=== PATIENT | male | born 1930 | race Caucasian/White ===

== ENCOUNTER → 2016-12-25 | Outpatient (CLI) | payer OTHER ==
[~2016-12-25] MED LIST: REGADENOSON 0.4 MG/5 ML DISP.SYRIN. IV ONE
--- NOTE | 2016-12-25 16:25 | PCVCIMAG ---
APPROVED REPORT Exam: Nuclear Stress Test Indication: CAD Patient Location: Out-Patient Stress Nurse: Janet Bhatt RN, Shyann Pardo RN DE Tech:Janes Chi NMTCB Ht: 5 ft 8 in Wt: 172 lbs BSA: 1.92 m2 HR: 70 bpm BP: 121/58 mmHg BMI: 26.1 Rhythm: Afib Medical History Medical History: Age, Hyperlipidemia, HTN, Afib, Cad, DM, Former Smoker Allergies: None Previous Cardiac Procedures: PCI Stress Test Details Stress Test: Pharmacologic stress testing performed using 0.4 mg of regadenoson per 5 mL given IV over 10 seconds. HR Resting HR: 70 bpmMax Heart Rate (APMHR): 135 bpm Max HR Achieved: 95 bpmTarget HR (85% APMHR): 114 bpm % of APMHR: 70 Recovery HR: 90 bpm BP Resting BP: 121/58 mmHg Max BP: 139/64 mmHg Recovery BP: 126/64 mmHg ECG Resting ECG: Atrial Fibrillation, Intraventricular conduction delay Stress ECG: Atrial Fibrillation, Intraventricular conduction delay ST Change: Non-ischemic Clinical Reason for Termination: Completed protocol Stress Symptoms: Dyspnea NM EXAM: Myocardial Perfusion REST/STRESS Imaging Protocol: Rest Tc-99m/Stress Tc-99m 1 day Resting Data Rest SPECT myocardial perfusion imaging was performed in supine position 45 minutes following the intravenous injection of 11.1 mCi of Tc-99m Sestamibi. Time of rest injection: 1300 Date: 12/25/2016 Pharmacologic Stress Pharmacologic stress test was performed by injecting Regadenoson 0.4 mg IV push followed by the intravenous injection of 32.4 mCi of Tc-99m Sestamibi. Time of stress injection: 1430 Date: 12/25/2016 The images were gated to evaluate regional wall motion and calculate left ventricular ejection fraction. Study Quality Study: Good Study Data Post stress, the left ventricular ejection was 48%.. SSS: 7 SRS: 1 SDS: 7 TID = 1.05. Perfusion There is a medium area of mildly reduced uptake in the apical segment of the distal inferior wall which is seen on the stress images and improves on the resting images. This area is hypokinetic and is most consistent with myocardial scar with rosetta-infarct ischemia. 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 The LV systolic function is at the lower limits of normal, with hypokinesis of the apical segment.
== END | disposition home or self-care (01) ==
LOC: PCVCIMAG 12:36
PROVIDERS: ATTEND Internal Medicine Cardiovascular Disease
DX: I48.91 Unspecified atrial fibrillation (principal); I25.10 Atherosclerotic heart disease of native coronary artery without angina pectoris; I25.89 Other forms of chronic ischemic heart disease; E78.5 Hyperlipidemia, unspecified; I10 Essential (primary) hypertension; E11.9 Type 2 diabetes mellitus without complications; K52.9 Noninfective gastroenteritis and colitis, unspecified; Z87.891 Personal history of nicotine dependence
CPT/HCPCS: 78452; 93017; A9500; J2785

== ENCOUNTER → 2017-06-27 | Outpatient (CLI) | payer OTHER | END | disposition home or self-care (01) | LOC: PCVCCLINIC 14:06 | DX: I25.10 Atherosclerotic heart disease of native coronary artery without angina pectoris (principal); I10 Essential (primary) hypertension; E78.00 Pure hypercholesterolemia, unspecified; I48.2 Chronic atrial fibrillation; G47.30 Sleep apnea, unspecified; I08.0 Rheumatic disorders of both mitral and aortic valves; R94.31 Abnormal electrocardiogram [ECG] [EKG]; Z87.891 Personal history of nicotine dependence; Z79.899 Other long term (current) drug therapy | CPT/HCPCS: 80061; 93005; G0463 ==

== ENCOUNTER → 2017-09-04 | Outpatient (CLI) | payer OTHER | END | disposition home or self-care (01) | LOC: PCVCIMAG 12:56 | DX: I08.8 Other rheumatic multiple valve diseases (principal); I25.10 Atherosclerotic heart disease of native coronary artery without angina pectoris; R06.02 Shortness of breath; I10 Essential (primary) hypertension; G47.33 Obstructive sleep apnea (adult) (pediatric); E78.00 Pure hypercholesterolemia, unspecified; I48.2 Chronic atrial fibrillation; D68.59 Other primary thrombophilia; Z87.891 Personal history of nicotine dependence; Z79.899 Other long term (current) drug therapy | CPT/HCPCS: 36415; 93005; 93306; G0463 ==

== ENCOUNTER → 2018-03-24 | Outpatient (CLI) | payer OTHER | END | disposition home or self-care (01) | LOC: PCVCCLINIC 14:41 | PROVIDERS: ATTEND Internal Medicine Cardiovascular Disease | DX: I48.0 Paroxysmal atrial fibrillation (principal); I25.119 Atherosclerotic heart disease of native coronary artery with unspecified angina pectoris; I10 Essential (primary) hypertension; E11.9 Type 2 diabetes mellitus without complications; I35.0 Nonrheumatic aortic (valve) stenosis; C34.31 Malignant neoplasm of lower lobe, right bronchus or lung; Z87.891 Personal history of nicotine dependence; Z79.899 Other long term (current) drug therapy | CPT/HCPCS: 80061; 93005; G0463 ==

== ENCOUNTER → 2019-04-02 | Outpatient (CLI) | payer OTHER ==
--- NOTE | 2019-04-02 17:28 | PCVCIMAG ---
APPROVED REPORT Study performed: 04/02/2019 14:41:53 EXAM: Comprehensive 2D, Doppler, and color-flow Echocardiogram Patient Location: Echo lab Room #: 2Status: routine BSA: 1.80 HR: 56 bpmBP: 122/58 mmHg Rhythm: NSR Other Information Study Quality: Adequate Risk Factors: Cardiac Risk Factors: Hyperlipidemia, DM, PAULINE Indications Diabetes Atrial Fibrillation CAD Hypertension/HDD S/P coronary stents 2D Dimensions IVSd: 9.03 (7-11mm)LVOT Diam: 19.52 (18-24mm) LVDd: 58.17 mm PWd: 8.69 (7-11mm)Ascending Ao: 34.33 (22-36mm) LVDs: 37.30 (25-40mm) Left Atrium: 42.96 (27-40mm) Aortic Root: 27.53 mm LV Single Plane 4CH: 61.71 % LV Single Plane 2CH: 44.41 % Biplane EF: 54.0 % Volumes Left Atrial Volume (Systole) Single Plane 4CH: 84.10 mLSingle Plane 2CH: 162.25 mL Biplane LA Volume: 124.00 mLLA ESV Index: 68.00 mL/m2 Aortic Valve AoV Peak Lloyd.: 3.62 m/s AO Peak Gr.: 53.20 mmHgLVOT Max P.41 mmHg AO Mean Gr.: 32.43 mmHgLVOT Mean P.94 mmHg AO V2 Mean: 2.69 m/sLVOT Max V: 0.95 m/s AO V2 VTI: 84.35 cmLVOT Mean V: 0.66 m/s JOSE MIGUEL (VTI): 0.73 [id number] V1 VTI: 20.69 cm JOSE MIGUEL Vmax: 0.79 cm2 SV (LVOT): 61.85 mL Mitral Valve E/A Ratio: 1.8 MV Decel. Time: 179.65 ms MV E Max Lloyd.: 1.25 m/s MV A Lloyd.: 0.71 m/s IVRT: 78.43 ms TDI E/Lateral E': 15.63E/Medial E': 20.83 Medial E' Lloyd.: 0.06 m/s Lateral E' Lloyd.: 0.08 m/s Pulmonary Valve PV Peak Gr.: 1.38 mmHg Pulmonary Vein P Vein S: 0.61 m/sP Vein A: 0.23 m/s P Vein D: 0.57 m/sP Vein A Dur.: 83.0 msec P Vein S/D Ratio: 1.07 Tricuspid Valve TR Peak Lloyd.: 3.36 m/s TR Peak Gr.: 45.02 mmHg TV Vmax: 0.67 m/sPA Pressure: 52.00 mmHg Left Ventricle Left ventricle is mildly dilated. There is normal LV segmental wall motion. There is normal left ventricular wall thickness. Left ventricular systolic function is normal. The left ventricular ejection fraction is within the normal range. LVEF is 50-55%. Right Ventricle The right ventricle is normal size. The right ventricular systolic function is normal. Atria Left atrium is severely dilated. The right atrium size is normal. Aortic Valve Severe aortic valve sclerosis. Aortic valve is probably trileaflet. Trace aortic regurgitation. There is severe valvular aortic stenosis. Calculated aortic valve area is 0.7 cm2 with maximum pressure gradient of 52 mmHg and mean pressure gradient of 32 mmHg. Mitral Valve The mitral valve is normal in structure. Mild to moderate mitral regurgitation. No evidence of mitral valve stenosis. Tricuspid Valve The tricuspid valve is normal in structure. Moderate to severe tricuspid regurgitation with a PA pressure of 52 mmHg. Moderate pulmonary hypertension. Pulmonic Valve The pulmonary valve is normal in structure. Mild pulmonic regurgitation. Great Vessels The aortic root is normal in size. The ascending aorta is normal in size. Aortic arch is normal in caliber. IVC is normal in size and collapses >50% with inspiration. Pericardium There is no pericardial effusion. There is no pleural effusion. <Conclusion> Left ventricle is mildly dilated. LVEF is 50-55%. The right ventricular systolic function is normal. Left atrium is severely dilated. Severe aortic valve sclerosis. Aortic valve is probably trileaflet. Trace aortic regurgitation. There is severe valvular aortic stenosis. Calculated aortic valve area is 0.7 cm2 with maximum pressure gradient of 52 mmHg and mean pressure gradient of 32 mmHg. Mild to moderate mitral regurgitation. Moderate to severe tricuspid regurgitation with a PA pressure of 52 mmHg. Moderate pulmonary hypertension. Mild pulmonic regurgitation. The aortic root is normal in size. There is no pericardial effusion.
== END | disposition home or self-care (01) ==
LOC: PCVCIMAG 14:25
PROVIDERS: ATTEND Internal Medicine Cardiovascular Disease
DX: I08.3 Combined rheumatic disorders of mitral, aortic and tricuspid valves (principal); I25.119 Atherosclerotic heart disease of native coronary artery with unspecified angina pectoris; I48.0 Paroxysmal atrial fibrillation; I27.20 Pulmonary hypertension, unspecified; Z95.5 Presence of coronary angioplasty implant and graft
CPT/HCPCS: 93306